=== PATIENT | male | born 1960 | race Asian ===

== ENCOUNTER 2016-09-26 07:51 | Day surgery (SDC) | payer BC | END 2016-09-26 10:05 | disposition home or self-care (01) | LOC: OR 07:51 | PROC: 0DJD8ZZ Inspection of Lower Intestinal Tract, Via Natural or Artificial Opening Endoscopic (ICD-10-PCS; principal; 2016-09-26) | DX: K64.8 Other hemorrhoids (principal); Z12.11 Encounter for screening for malignant neoplasm of colon | CPT/HCPCS: J2001; J2250; J2704 ==